=== PATIENT | female | born 1955 | race Caucasian/White ===

== ENCOUNTER 2021-04-28 21:43 | Emergency (ER) | payer MEDICARE, BC ==
[2021-04-28] MEDS ORDERED: Diazepam 5 MG Tab PO ONE (22:17)
[2021-04-28] MEDS ORDERED: Ketorolac 30 MG/ML SDV IM ONE (22:17)
--- NOTE | 2021-04-28 22:21 | EDM.PDOC ---
ED HPI GENERAL MEDICAL PROBLEM - General Chief Complaint: Back Pain or Injury Stated Complaint: BACK PAIN, spasms, fall Time Seen by Provider: 04/28/21 22:10 Source of Information: Reports: Patient - History of Present Illness INITIAL COMMENTS - FREE TEXT/NARRATIVE: Slick is a 65 y/o female who comes to the ER with back and neck pain. She reports that she tripped on while visiting her sister and she landed on the edge of a plant. She did hit her chin and that got quite bruised, but she wasn't that sore until today. She did feel like she pulled a muscle in her back with the fall, but this AM she was much more tight and her back and neck hurt. She did take a dose of Celebrex that she had it home and it helped a little, but she ahs take nothing more since. low back Pain Score (Numeric/FACES): 10 left lateral neck Pain Score (Numeric/FACES): 8 - Related Data Allergies Allergy/AdvReac Type Severity Reaction Status Date / Time No Known Allergies Allergy Verified 07/18/15 09:21 Home Meds: Home Meds Apixaban [Eliquis] 5 mg PO DAILY 04/28/21 [History] Review of Systems - Review of Systems Review Of Systems: See Below Constitutional: Reports: No Symptoms Eyes: Reports: No Symptoms Ears: Reports: No Symptoms Nose: Reports: No Symptoms Mouth/Throat: Reports: No Symptoms Respiratory: Reports: No Symptoms Cardiovascular: Reports: No Symptoms GI/Abdominal: Reports: No Symptoms Genitourinary: Reports: No Symptoms Musculoskeletal: Reports: Neck Pain, Back Pain, Muscle Pain, Muscle Stiffness Skin: Reports: No Symptoms Neurological: Reports: No Symptoms Psychiatric: Reports: No Symptoms ED EXAM, GENERAL - Physical Exam Exam: See Below General Appearance: Alert, WD/WN, No Apparent Distress (Elderly female) Ears: Hearing Grossly Normal Nose: Normal Inspection, Normal Mucosa Throat/Mouth: Normal Inspection, Normal Oropharynx, Normal Voice Head: Atraumatic, Normocephalic, Other (Note bruising to chin region) Neck: Normal Inspection, Supple, Other (note posterior muscle tenderness Left>right) Respiratory/Chest: No Respiratory Distress, Lungs Clear, Chest Non-Tender Cardiovascular: Normal Peripheral Pulses, Regular Rate, Rhythm, No Murmur GI/Abdominal: Normal Bowel Sounds, Soft (Female) Exam: Deferred Rectal (Female) Exam: Deferred Back Exam: Normal Inspection, Muscle Spasm (note lower muscle spasms in back bilaterally and in rib region). 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 She was given Toradol 30mg IM and Diazepam 10mg po. 2329 Patient reported she was feeling better and could rest. She was given written discharge instructions and left the ER in stable condition with her . Last Recorded V/S: Last Vital Signs Temp 37.6 C 04/28/21 21:43 Pulse 80 04/28/21 21:43 Resp 16 04/28/21 21:43 BP 143/85 H 04/28/21 21:43 Pulse Ox 97 04/28/21 21:43 - Orders/Labs/Meds Meds: Medications Discontinued Medications Generic Name Dose Route Start Last Admin Trade Name Prosper PRN Reason Stop Dose Admin Diazepam 10 mg 04/28/21 22:17 04/28/21 22:37 Diazepam 5 Mg Tab PO 04/28/21 22:18 10 mg ONETIME ONE Administration Ketorolac Tromethamine 30 mg 04/28/21 22:17 04/28/21 22:38 Ketorolac 30 Mg/Ml Sdv IM 04/28/21 22:18 30 mg ONETIME ONE Administration Departure - Departure Time of Disposition: 23:29 Disposition: Home, Self-Care 01 Clinical Impression: Muscle spasm - Discharge Information *PRESCRIPTION DRUG MONITORING PROGRAM REVIEWED*: Not Applicable *COPY OF PRESCRIPTION DRUG MONITORING REPORT IN PATIENT RAEGAN: Not Applicable Instructions: Muscle Cramps and Spasms, Pain Medicine Instructions, [id number] Referrals: Shilpa Story DO [Primary Care Provider] - Forms: ED Department Discharge Additional Instructions: -Ibuprofen 200mg 3 tabs orally every 6 hours x 4-5 days then every 6-8 hours as needed -Cyclobenzaprine 10 mg orally every 8 hours as needed for muscle spasms. Use the meds that you have at home. -May also use acetaminophen as needed also -Ice or heat applied to the area as needed -Rest, Increase activity as able -Follow up with your Primary Care Provider to arrange further diagnostic testing if the pain persists -Return to the ER if any other concerns Sepsis Event Note (ED) - Focused Exam Vital Signs: Vital Signs Temp Pulse Resp BP Pulse Ox 04/28/21 21:43 37.6 C 80 16 143/85 H 97 - Assessment/Plan Assessment:: 1)Muscle Spasms Plan: As above
== END 2021-04-28 23:40 | disposition home or self-care (01) ==
LOC: VM.ED 21:43
DX: M62.838 Other muscle spasm (principal); Z79.01 Long term (current) use of anticoagulants
CPT/HCPCS: 96372; 99283; A9270-GY; J1885